=== PATIENT | male | born 1970 | race Caucasian/White ===

== ENCOUNTER → 2021-11-30 11:24 | Outpatient (BNVA) | payer OTHER, SELFPAY | PROVIDERS: PCP Family Medicine; Visit Provider Family Medicine | DX: G47.33 Obstructive sleep apnea (adult) (pediatric) (principal); M10.9 Gout, unspecified; E78.5 Hyperlipidemia, unspecified | CPT/HCPCS: 80053; 80061; 84550; 85025 ==

== ENCOUNTER → 2022-03-01 11:23 | Outpatient (BNVA) | payer OTHER, SELFPAY | PROVIDERS: PCP Family Medicine; Visit Provider Family Medicine | DX: N41.9 Inflammatory disease of prostate, unspecified (principal); Z12.11 Encounter for screening for malignant neoplasm of colon | CPT/HCPCS: G0103 ==

== ENCOUNTER 2023-03-27 11:43 | Outpatient (CLI) | payer OTHER, SELFPAY ==
--- NOTE | 2023-03-27 11:49 | CT_ITS ---
WS: [id number] CT ORBITS TECHNIQUE: Contrast-enhanced CT of the orbits with coronal and sagittal reformatted images. CLINICAL INFORMATION: ACUTE LACRIMAL CANALICULITUS/MYOPATHY OF EXTRAOCULAR MUSCLES COMPARISON: None. DLP: All CT scans at [facility] use at least one of these dose optimization techniques: automated e xposure control; mA and/or kV adjustment per patient size (includes targeted exams where dose is matc hed to clinical indication); or iterative reconstruction. FINDINGS: Prominent soft tissue mass or chronic inflammatory process with soft tissue thickening obstructing th e lacrimal fossa and medial canthus likely due to dacryocystitis. No significant postseptal extension . Intraconal fat appears within normal limits. Underlying mucocele or sinonasal neoplasm is not exclu ded. Associated mass effect on the globe with mild medial to lateral compression. Slight buckling of the globe. Mass encases the medial rectus and partially encases the inferior rectus. Associated erosion of the nasolacrimal duct and anterior LEFT ethmoid air cells and lamina papyracea. Slight dehiscence of the anterior medial roof of the maxillary sinus. Soft tissue mass/inflammatory process measures approximately 2.6 x 2.3 x 2.6 cm. Associated preseptal soft tissue edema. Cribriform plate appears intact. Mild mucosal thickening in the frontal sinuses. Opacification of the LEFT frontal ethmoidal recess. Mastoid air cells are well aerated. Sphenoid sinus is well aerated. Normal sphenoid sinus ostia. Maxi llary sinuses well aerated. Partially visualized intracranial contents appear normal. IMPRESSION: 1. Soft tissue mass or chronic inflammation with soft tissue thickening obstructing the lacrimal fos sa and medial canthus likely due to dacryocystitis. No significant postseptal extension. 2. Underlying cystocele/mucocele or sinonasal neoplasm is not excluded. 3. Inflammatory process encases the medial rectus and partially encases the inferior rectus. Associa ottoniel lateral mass effect with slight buckling of the globe. 4. Bony erosion of the nasolacrimal duct and destruction of the lamina papyracea involving the anter ior ethmoid air cells 5. Slight dehiscence of the anterior medial roof of the maxillary sinus at the inferior duct. 6. RIGHT orbit appears normal. Notified Tosha HORTON at Dr. Romero office 03/27/2023 2:58 PM.
[2023-03-27] MEDS: iohexol 350 mg/mL 500 mL Btl (per mL) IV (12:32)
== END 2023-03-27 11:44 | disposition home or self-care (01) ==
LOC: RAD 11:43
PROVIDERS: PCP Family Medicine; Visit Provider Student in an Organized Health Care Education/Training Program
DX: H04.332 Acute lacrimal canaliculitis of left lacrimal passage (principal); H05.829 Myopathy of extraocular muscles, unspecified orbit; R93.0 Abnormal findings on diagnostic imaging of skull and head, not elsewhere classified
CPT/HCPCS: 70482; Q9967

== ENCOUNTER 2023-03-29 10:50 | Outpatient (CLI) | payer OTHER, SELFPAY ==
--- NOTE | 2023-03-29 10:58 | MR_ITS ---
WS: [id number] MRI NECK WITH CONTRAST TECHNIQUE: Noncontrast axial T1, axial T2 FSE fat sat, coronal T2 fat sat, coronal T1, coronal T1 fat sat, sagittal T2 fat sat, plus contrast enhanced coronal, sagittal, and axial T1 fat sat images obta ined. CLINICAL INFORMATION: ORBITAL MASS UNCERTAIN, LEFT EYE COMPARISON: CT 03/27/2023 FINDINGS: Again seen is the soft tissue mass involving the LEFT lacrimal fossa and medial canthus with previous history of dacryocystitis. Associated mass effect on the globe with mild medial to lateral compressi on with buckling similar to the recent CT. Mass encases the medial rectus and partial encases the inf erior rectus as previously described. No evidence of post septal extension. LEFT exophthalmos. Destructive changes involving the adjacent paranasal sinuses and nasolacrimal duct. Erosion of the la janis papyracea with extension to the LEFT anterior ethmoid air cells. Dehiscence of the anterior medi al roof of the maxillary sinus better seen on the prior CT. Soft tissue mass demonstrates intense enh ancement with associated preseptal soft tissue edema. No evidence of intracranial invasion. Cribrifor m plate appears intact. Mass measures approximately 3.3 x 2.4 x 2.7 cm. Normal optic chiasm and pitu itary infundibulum. Mild mucosal thickening involving the frontal sinuses and LEFT frontal ethmoidal recess. Normal posterior nasopharynx. Normal posterior fossa. Normal vascular flow voids at the skull base. N o extra-axial fluid collections. No restricted diffusion to suggest acute ischemia. Minimal small vessel changes. No significant paren chymal volume loss. Intraconal fat appears preserved. IMPRESSION: 1. No significant change in the LEFT orbital enhancing mass described on the recent CT. 2. Associated invasion of the LEFT anterior ethmoid air cells. Diffuse soft tissue enhancement. Diff erential considerations are unchanged but masslike enhancement and destructive changes are suspicious and neoplasm such as sinonasal carcinoma and lymphoma should be excluded. 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 Associated LEFT RIGHT mass effect on the globe with exophthalmos. Buckling of the globe. Peripher al enhancement involving the LEFT optic nerve sheath likely reactive. 4. Encasement of the medial rectus and partial encasement of the inferior rectus. 5. No evidence of intracranial invasion.
[2023-03-29] MEDS: gadobenate dimeglumine 20 mL vial IV (11:59)
== END 2023-03-29 10:51 | disposition home or self-care (01) ==
LOC: RAD 10:50
PROVIDERS: PCP Family Medicine; Visit Provider Student in an Organized Health Care Education/Training Program
DX: H05.9 Unspecified disorder of orbit (principal); R93.0 Abnormal findings on diagnostic imaging of skull and head, not elsewhere classified; H05.20 Unspecified exophthalmos
CPT/HCPCS: 70543; A9577